=== PATIENT | female | born 1965 | race Caucasian/White ===

== ENCOUNTER 2021-10-07 15:44 | Emergency (ER) | payer MEDICAID ==
[~2021-10-07] VITALS: Ht 157.5 cm; Wt 77.1 kg
[2021-10-07 16:28] VITALS: BP_SYST 128
== END 2021-10-07 18:15 | disposition left against medical advice (07) ==
LOC: SED 15:44
DX: Z48.00 Encounter for change or removal of nonsurgical wound dressing (principal); Z53.21 Procedure and treatment not carried out due to patient leaving prior to being seen by health care provider